=== PATIENT | male | born 1990 | race Caucasian/White ===

== ENCOUNTER 2016-09-30 08:32 | Emergency (ER) | payer SELFPAY ==
[2016-09-30 09:44] VITALS: BP 118/79
== END 2016-09-30 09:44 | disposition home or self-care (01) ==
LOC: ED 08:32
DX: L02.32 Furuncle of buttock (principal)

== ENCOUNTER 2017-05-29 14:27 | Emergency (ER) | payer SELFPAY ==
[2017-05-29 17:41] VITALS: BP 114/66
== END 2017-05-29 17:42 | disposition home or self-care (01) ==
LOC: ED 14:27
DX: B34.9 Viral infection, unspecified (principal); J06.9 Acute upper respiratory infection, unspecified; R03.0 Elevated blood-pressure reading, without diagnosis of hypertension
CPT/HCPCS: J1885; J7613

== ENCOUNTER 2017-07-03 19:30 | Emergency (ER) | payer MEDICAID ==
[~2017-07-03] VITALS: Ht 167.6 cm; Wt 89.3 kg
[2017-07-03 20:03] VITALS: Ht 167.6 cm; Wt 89.3 kg
[2017-07-03 21:39] VITALS: BP 146/72
== END 2017-07-03 21:40 | disposition home or self-care (01) ==
LOC: ED 19:30
DX: S40.862A Insect bite (nonvenomous) of left upper arm, initial encounter (principal); L25.8 Unspecified contact dermatitis due to other agents; S40.861A Insect bite (nonvenomous) of right upper arm, initial encounter; W57.XXXA Bitten or stung by nonvenomous insect and other nonvenomous arthropods, initial encounter; Y93.89 Activity, other specified; Y99.8 Other external cause status; Y92.89 Other specified places as the place of occurrence of the external cause
CPT/HCPCS: J1100

== ENCOUNTER 2017-07-18 22:46 | Emergency (ER) | payer MEDICAID ==
[~2017-07-18] VITALS: Ht 167.6 cm; Wt 92.1 kg
[2017-07-18 22:52] VITALS: Ht 167.6 cm; Wt 92.1 kg
[2017-07-19 00:15] VITALS: BP 128/87
== END 2017-07-19 00:15 | disposition home or self-care (01) ==
LOC: ED 22:46
DX: L29.8 Other pruritus (principal)

== ENCOUNTER 2018-04-01 00:31 | Emergency (ER) | payer SELFPAY ==
[~2018-04-01] VITALS: Ht 167.6 cm; Wt 85.3 kg
[2018-04-01 00:40] VITALS: Ht 167.6 cm; Wt 85.3 kg
[2018-04-01 01:35] VITALS: BP 135/90
== END 2018-04-01 01:35 | disposition home or self-care (01) ==
LOC: ED 00:31
DX: S61.211A Laceration without foreign body of left index finger without damage to nail, initial encounter (principal); F17.210 Nicotine dependence, cigarettes, uncomplicated; Z71.6 Tobacco abuse counseling; W26.0XXA Contact with knife, initial encounter; Y93.89 Activity, other specified; Y92.090 Kitchen in other non-institutional residence as the place of occurrence of the external cause; Y99.8 Other external cause status
CPT/HCPCS: 90715; 99406; J2001